=== PATIENT | male | born 1960 | race Caucasian/White ===

== ENCOUNTER 2023-10-23 14:30 | Emergency (ER) | payer OTHER, SELFPAY ==
[2023-10-23 14:36] VITALS: BP 177/102; PULSE 65; RESP 18; TEMP 36.9; O2SAT 98; BMI 29.2
--- NOTE | 2023-10-23 15:34 | DI.RAD.S_ITS ---
PROCEDURE: XR LUMBAR SPINE 2-3V INDICATIONS: low back pain after fall from rollerskates TECHNIQUE: 3 views of the lumbar spine were acquired. COMPARISON: None. FINDINGS: Bones: 5 [id number] vertebrae are present. There is normal bony alignment. There is superior endplate deformity with vertebral body height loss concerning for compression fracture. No suspicious bony lesions. Soft tissues: Overlying bowel gas pattern is normal. No suspicious soft tissue calcifications. IMPRESSION: L1 superior endplate deformity with vertebral body height loss is concerning for compression fracture. No comparisons are available at time of dictation. Findings may represent acute fracture. Recommend correlation with point tenderness. Approved by: Isamar Zaragoza M.D. on 10/23/2023 at 17:41
--- NOTE | 2023-10-23 15:37 | ED_ITS ---
HPI - Back Pain/Injury <Socorro Meyers PA-C - Last Filed: 10/23/23 18:05> General Chief Complaint: Back Pain/Injury Stated Complaint: fall/hit lower back, severe back pain Time Seen by Provider: 10/23/23 15:30 Source: patient History of Present Illness HPI Narrative: Patient is a 63-year-old male who presents due to low back pain after a fall from roller skates today. States he roller skates frequently. Today he was standing still when his feet went out from under him and he fell. He felt several pops. History of low back pain that has been managed by a chiropractor in the past. Did not take any medication or try any therapy prior to arrival. Denies loss of control of bowel or bladder, radiating numbness or tingling, saddle anesthesia or inability to walk. Related Data Previous Rx's Medication Instructions Recorded cyclobenzaprine 10 mg tablet 10 mg PO TID PRN muscle spasm #7 10/23/23 tabs Allergies Allergy/AdvReac Type Severity Reaction Status Date / Time No Known Drug Allergies Allergy Verified 10/23/23 14:58 Review of Systems <Socorro Meyers PA-C - Last Filed: 10/23/23 18:05> Review of Systems ROS Unobtainable: All systems reviewed & are unremarkable except as noted in HPI and below Patient History <Socorro Meyers PA-C - Last Filed: 10/23/23 18:05> Social History Smoking Status: Never smoker Smoking Status: Never smoker alcohol intake frequency: a few times a month Substance Use Type: marijuana Exam <Socorro Meyers PA-C - Last Filed: 10/23/23 18:05> Narrative Exam Narrative: GENERAL: 63 year old patient appears stated age. Well-developed patient, in mild distress. NEURO: AOx3. HEAD: Atraumatic. Normocephalic. EYES: Pupils equal round and reactive. Extraocular motions intact. No scleral icterus. No injection or drainage. ENT: Nose without bleeding or purulent drainage. RESPIRATORY: No acute distress EXTREMITIES: No edema or joint tenderness. SPINE: No midline bony tenderness. Tender over the paraspinals in the low lumbar spine. No sacral tenderness. 5/5 strength in the lower extremities. Sensation intact in distal feet. SKIN: No rash or erythema of visible areas Initial Vital Signs Initial Vital Signs: Vital Signs Temperature 98.5 F 10/23/23 14:36 Pulse Rate 65 10/23/23 14:36 Respiratory Rate 18 10/23/23 14:36 Blood Pressure 177/102 H 10/23/23 14:36 Pulse Oximetry 98 10/23/23 14:36 Oxygen Delivery Method Room Air 10/23/23 14:36 <Karime Perdomo MD - Last Filed: 10/23/23 18:29> Initial Vital Signs Initial Vital Signs: Vital Signs Temperature 98.5 F 10/23/23 14:36 Pulse Rate 65 10/23/23 14:36 Respiratory Rate 18 10/23/23 14:36 Blood Pressure 177/102 H 10/23/23 14:36 Pulse Oximetry 98 10/23/23 14:36 Oxygen Delivery Method Room Air 10/23/23 14:36 Course <Socorro Meyers PA-C - Last Filed: 10/23/23 18:05> Orders Ordered: ED Orders 10/23/23 15:34 XR lumbar spine 2-3V Stat Discontinued Medications Cyclobenzaprine HCl (Cyclobenzaprine 10 Mg Prepack) 1 bottle MISC DIRECTED ONE Stop: 10/23/23 17:18 Last Admin: 10/23/23 17:25 Dose: 1 bottle Documented By: MELBA Ketorolac Tromethamine (Ketorolac 30 Mg/Ml Vial) 30 mg IM NOW ONE Stop: 10/23/23 15:35 Last Admin: 10/23/23 15:39 Dose: 30 mg Documented By: MELBA Consultations Consultation #1: Dr Perdomo, [id number]; discussed xray findings with Dr. Perdomo. Recommends back brace, pain control, rest. F/u PCP for reassessment. Vital Signs Vital signs: Vital Signs - 8 hr 10/23/23 14:36 10/23/23 17:21 Temperature 98.5 F Pulse Rate 65 63 Respiratory Rate 18 Blood Pressure 177/102 H 148/77 H Pulse Oximetry 98 97 Oxygen Delivery Method Room Air Room Air <Karime Perdomo MD - Last Filed: 10/23/23 18:29> Orders Ordered: ED Orders 02/18/24 15:34 XR lumbar spine 2-3V Stat Discontinued Medications Cyclobenzaprine HCl (Cyclobenzaprine 10 Mg Prepack) 1 bottle MISC DIRECTED ONE Stop: 10/23/23 17:18 Last Admin: 10/23/23 17:25 Dose: 1 bottle Documented By: MELBA Ketorolac Tromethamine (Ketorolac 30 Mg/Ml Vial) 30 mg IM NOW ONE Stop: 10/23/23 15:35 Last Admin: 10/23/23 15:39 Dose: 30 mg Documented By: RL Vital Signs Vital signs: Vital Signs - 8 hr 10/23/23 14:36 10/23/23 17:21 Temperature 98.5 F Pulse Rate 65 63 Respiratory Rate 18 Blood Pressure 177/102 H 148/77 H Pulse Oximetry 98 97 Oxygen Delivery Method Room Air Room Air MDM - Back Pain/Injury <Socorro Meyers PA-C - Last Filed: 10/23/23 18:05> Imaging Data lumbar XR: Radiologist's Impression: PROCEDURE: XR LUMBAR SPINE 2-3V INDICATIONS: low back pain after fall from rollerskates TECHNIQUE: 3 views of the lumbar spine were acquired. COMPARISON: None. FINDINGS: Bones: 5 [id number] vertebrae are present. There is normal bony alignment. There is superior endplate deformity with vertebral body height loss concerning for compression fracture. No suspicious bony lesions. Soft tissues: Overlying bowel gas pattern is normal. No suspicious soft tissue calcifications. IMPRESSION: L1 superior endplate deformity with vertebral body height loss is concerning for compression fracture. No comparisons are available at time of dictation. Findings may represent acute fracture. Recommend correlation with point tenderness. Approved by: Isamar Zaragoza M.D. on 10/23/2023 at 17:41 [facility] Narrative Medical decision making narrative: Multiple etiologies for patient's symptoms considered including, but not limited to: Fracture, strain low back No red flags for cauda equina. Patient's pain is much improved after IM Toradol. X-ray obtained; delay in x-ray report. Discussed this with the patient. He is feeling much better, he has good strength, sensation in his lower extremities and can walk easily. He would like to go home. He is flying home tomorrow to [place] and can follow up with his PCP. He would like me to call him tonight with x-ray report. Given prepack of muscle relaxer for tonight as well as several doses for tomorrow. Patient understands return precautions. When report available, Xray shows L1 superior endplate deformity with vertebral body height loss is concerning for compression fracture. No comparisons are available at time of dictation. Findings may represent acute fracture. Recommend correlation with point tenderness. Patient without point tenderness on exam, complains of generalized pain across the lumbar region. Patient contacted by phone and notified of the results. Instructed to obtain a brace from the drugstore that is stiff and will support his back and remind him to be conscientious about his movements. Advised NSAIDs and muscle relaxers. Follow up with PCP when he returns home, consider repeat xrays vs MRI. Offered to have patient come back to the emergency room tonight for reassessment but patient states he would like to go home and rest. Understands diagnosis. If he develops any symptoms such as weakness, loss of bowel or bladder control or saddle anesthesia, he should return to the emergency department immediately. Patient's symptoms improved over duration of stay with above-stated therapies. Findings and discharge diagnosis discussed with patient/family followed by verb alization of understanding Return precautions discussed with patient/family whom verbalize understanding of diagnosis and plan Discharge Plan Departure Patient Disposition: Home Clinical Impression: Compression fracture of lumbar vertebra Qualifiers: Encounter type: initial encounter Lumbar vertebra fracture level: L1 Qualified Code(s): S32.010A - Wedge compression fracture of first lumbar vertebra, initial encounter for closed fracture Instructions: DI for Low Back Pain Activity Restrictions/Additional Instructions: *You have been diagnosed with suspected lumbar compression fracture. You were treated with Toradol in the emergency room which is an NSAID; do not take another NSAIDs such as ibuprofen for 12 hours after this. We have also given you a short prescription of muscle relaxers which you can use to alleviate the spasm pain. Do not combine these with other sedative medications or alcohol. Do not drive while taking these medications. I have sent a few more doses to the [facility] if you want to pick them up tomorrow. If you develop any loss of bowel or bladder control, numbness in your groin or are unable to walk due to weakness, please go to your nearest Emergency room. *What to do: *Please continue to take your regular medications as directed. [x] New medication prescriptions sent to your pharmacy: [facility] [ ] New medication written as a paper prescription [ ] No new medications given *Please follow up with your primary care provider in 2-3 days, call for an appointment. Let them know you were seen in the Emergency Department and that we ask that you be seen in follow up. We will electronically transmit a record of today's note if your PCP is in our system *If you do not have a primary care provider please contact the [facility] Resource line at [phone]. They will ask some questions about your medical history and help get you set up with a doctor in the community. *Return to Emergency Department if you should have any new, worsening or concerning symptoms, such as [fever greater than 101 F, shaking chills, worsening pain, persistent vomiting or other concerning symptoms]. Prescriptions: New cyclobenzaprine 10 mg tablet 10 mg PO TID PRN (Reason: muscle spasm) Qty: 7 0RF Referrals: Miscellaneous,Doctor, [Primary Care Provider] - Stand Alone Forms: Patient Portal/API ED Sign-out <Karime Perdomo MD - Last Filed: 10/23/23 18:29> Cosign ED Attending Arcadio Attestation: I did not see this patient. I was available all times for consultation.
[2023-10-23] MEDS: KETOROLAC 30 MG/ML VIAL IM (15:39)
[2023-10-23 17:21] VITALS: BP 148/77; PULSE 63; O2SAT 97
[2023-10-23] MEDS: CYCLOBENZAPRINE 10 MG PREPACK 1 BOTTLE MISC (17:25)
== END 2023-10-23 17:26 | disposition home or self-care (01) ==
PROVIDERS: Emergency Provider Physician Assistant
DX: S32.010A Wedge compression fracture of first lumbar vertebra, initial encounter for closed fracture (principal); W18.30XA Fall on same level, unspecified, initial encounter; Y93.51 Activity, roller skating (inline) and skateboarding
CPT/HCPCS: 72100; 96372; 99283; J1885